=== PATIENT | male | born 1980 | race Caucasian/White ===

== ENCOUNTER 2018-04-14 00:39 | Emergency (ER) | payer BC ==
[~2018-04-14] VITALS: Ht 182.9 cm; Wt 102.1 kg
[2018-04-14] MEDS ORDERED: ALLOPURINOL100 M1 ORAL (01:07)
[2018-04-14 01:23] VITALS: BP 114/64
[2018-04-14] MEDS ORDERED: IBUPROFEN600 MG ORAL (01:39)
[2018-04-14] MEDS ORDERED: LEVAQUIN750 MG ORAL (01:39)
--- NOTE | 2018-04-14 01:39 | Emergency Room Report ---
History of Present Illness General Chief Complaint: Flu Like Symptoms Source: Patient Present Illness HPI Is a 37-year-old male with no past medical history. He presents with flulike symptoms. He was vacationing in [place] and on the last day he started feeling sick. She's he got back he's been having fever chills. Also with sore throat. Now he has rash on his hand and feet. Also has a rash on his body especially the armpit and groin area. He was in a jet pool. No nausea no vomiting. Worse with swallowing. Better with rest. Denies any other complaint. Allergies: Coded Allergies: No Known Allergies (Unverified , 04/14/18) Patient History Past Medical History: none, see triage record, old chart reviewed Past Surgical History: none Pertinent Family History: none Social History: Denies: smoking Immunizations: other Reviewed Nursing Documentation: PMH: Agreed; PSxH: Agreed Nursing Documentation-PMH Past Medical History: No History, Except For Hx Pacemaker: No - gout Review of Systems Constitutional: Reports: chills, fever Eye: Denies: eye pain, blurred vision ENT: Reports: throat pain; Denies: ear pain, nose congestion, throat swelling Respiratory: Denies: cough, shortness of breath Cardiovascular: Denies: chest pain, palpitations Gastrointestinal: Denies: abdominal pain, diarrhea, nausea, vomiting Musculoskeletal: Denies: back pain, joint pain Skin: Reports: rash Neurological: Denies: headache, numbness Endocrine: Denies: increased thirst, increased urine Hematologic/Lymphatic: Denies: easy bruising All Other Systems: negative except mentioned in HPI Physical Exam Vital Signs Date Time Temp Pulse Resp B/P (MAP) Pulse Ox O2 Delivery O2 Flow Rate FiO2 04/14/18 01:03 99.1 86 16 114/64 98 Room Air vitals unremarkable Sp02 EP Interpretation: reviewed, normal General Appearance: well appearing, no apparent distress, alert Head: normocephalic, atraumatic Eyes: bilateral eye PERRL, bilateral eye EOMI ENT: hearing grossly normal, tonsillar swelling, pharyngeal erythema Neck: full range of motion, supple, no meningismus Respiratory: chest non-tender, lungs clear, normal breath sounds Cardiovascular #1: regular rate, rhythm, no murmur Gastrointestinal: normal bowel sounds, non tender, no mass, no organomegaly, no bruit, non-distended Musculoskeletal: back normal, gait/station normal, normal range of motion, other - On the sole of his feet and the palm of his hands there are rashes. there are pustules near axilla and thigh Neurologic: alert, oriented x3 Psychiatric: mood/affect normal Skin: warm/dry Medical Decision Making Diagnostic Impression: Primary Impression: Hand, foot and mouth disease Additional Impression: Hot tub folliculitis ER Course This with 2 issues going on. When he looked that he has a hot tub folliculitis. Most likely Pseudomonas. The other one may be an foot and mouth disease. We'll discharge home with antibiotics and symptomatic treatment. Last Vital Signs Date Time Temp Pulse Resp B/P (MAP) Pulse Ox O2 Delivery O2 Flow Rate FiO2 04/14/18 01:23 99.4 86 16 114/64 98 Room Air Status: unchanged Disposition: HOME, SELF-CARE Condition: Stable Scripts Levofloxacin* (LEVAQUIN*) 750 Mg Tablet 750 MG ORAL DAILY, #7 TAB Prov: Corbin Bowser MD 04/14/18 Ibuprofen* (MOTRIN*) 600 Mg Tablet 600 MG ORAL THREE TIMES A DAY, #30 TAB 0 Refills Prov: Corbin Bowser MD 04/14/18 Additional Instructions: Increase fluids. Follow-up with your doctor in 3-5 days for recheck. Return if worse. Corbin Bowser MD Apr 14, 2018 01:39
[2018-04-14 01:54] VITALS: BP 114/64
== END 2018-04-14 01:43 | disposition home or self-care (01) ==
LOC: EMR 01:34
DX: B08.4 Enteroviral vesicular stomatitis with exanthem (principal); L73.9 Follicular disorder, unspecified
CPT/HCPCS: 99283